=== PATIENT | male | born 1985 | race Caucasian/White ===

== ENCOUNTER 2017-09-26 14:23 | Outpatient (CLI) | payer OTHER ==
[2017-09-26 16:30] LABS: Anion Gap 9 mmol/L (10-20); BUN (Urea Nitrogen) 14 mg/dL (8.9-20.6); Calc. Creatinine Clearance 0 mL/min (70-130); Calcium 9.8 mg/dL (7.8-10.44); Carbon Dioxide 32 mmol/L (22-29); Chloride 102 mmol/L (98-107); Estimated GFR-MDRD 89; Glucose 133 mg/dL (70-105); Potassium 3.8 mmol/L (3.5-5.1); Sodium 139 mmol/L (136-145)
== END 2017-09-26 14:24 | disposition home or self-care (01) ==
LOC: LABBT 14:23
PROVIDERS: ATTEND Surgery
DX: Z01.812 Encounter for preprocedural laboratory examination (principal); K40.90 Unilateral inguinal hernia, without obstruction or gangrene, not specified as recurrent
CPT/HCPCS: 80048

== ENCOUNTER 2017-09-28 12:06 | Day surgery (SDC) | payer OTHER ==
[2017-09-26 15:01] VITALS: BMI 23.4
[2017-09-28] MEDS ORDERED: CEFAZOLIN/Water 2 GM/20 ML SYRINGE ONE (13:12)
[2017-09-28] MEDS ORDERED: Bupivacaine/Epinephrine 0.25% 30 ML VIAL ONE (13:33)
[2017-09-28] MEDS ORDERED: Midazolam HCl 2 mg/2 ml Vial ONE (13:53)
[2017-09-28] MEDS ORDERED: Fentanyl 250 MCG/5 ML VIAL ONE (13:53)
[2017-09-28] MEDS ORDERED: Fentanyl 100 MCG/2 ML VIAL ONE ×3 (13:53→16:06)
[2017-09-28] MEDS ORDERED: PROPOFOL 200 MG/20 ML VIAL ONE (15:32)
[2017-09-28] MEDS ORDERED: Glycopyrrolate 0.2 MG/ML 5 ML SYRINGE ONE (15:32)
[2017-09-28] MEDS ORDERED: Dexamethasone 20 MG/5 ML VIAL ONE (15:32)
[2017-09-28] MEDS ORDERED: Lidocaine 1% PF 5 ML VIAL ONE (15:32)
[2017-09-28] MEDS ORDERED: HYDROcodone/Acetaminophen 5/325 mg Tablet ONE (17:08)
--- NOTE | 2017-09-28 20:22 | OP ---
PREOPERATIVE DIAGNOSIS: Right inguinal hernia. POSTOPERATIVE DIAGNOSIS: Right inguinal hernia. PROCEDURE PERFORMED: Da Sid laparoscopic right inguinal hernia repair with mesh, Bard 3DMax large. SURGEON: Luis Duffy MD ANESTHESIA: General. ESTIMATED BLOOD LOSS: Minimal. COMPLICATIONS: None. SPECIMEN: None. FINDINGS: Right inguinal hernia. TECHNIQUE: The patient was taken to the operating room and placed supine on the table. After genera l anesthetic was obtained, Adame was placed. The abdomen was shaved, prepped, and draped in a steril e fashion. Curved incision was made above the umbilicus. Cautery used to dissect down to and score the fascia. Abdominal cavity was entered bluntly using a Nany clamp, followed by a 12-mm balloon ap plied medical trocar. The balloon was inflated and pulled up. High-flow pneumoperitoneum was obtain ed. Left and right abdominal 8-mm robot trocars were placed under direct visualization. The patient was placed in Trendelenburg position. All ports were docked to the robot. Surgeon goes to the cons ole. The peritoneum was taken down in the right groin and the preperitoneal space was fully dissecte d. The direct defect was dissected back out of the defect. A small indirect hernia sac was dissecte d high up onto the peritoneum. 3DMax large mesh had been brought into and placed into the abdominal cavity. The end-labeled medial aspect was placed over the pubic tubercle. The mesh was laid out la terally to cover the femoral, indirect and direct areas. 2-0 Vicryl was used to affix the mesh to pu bic tubercle medially and to the posterior fascia laterally. The peritoneum was approximated using 3 -0 Stratafix. All needles were removed from the abdomen and accounted for. All port sites were infi ltrated using local anesthetic. All ports were removed under camera visualization. Pneumoperitoneum was let down. PDS was used to close the fascial defect below the umbilicus. All incisions were irr igated and closed using 4-0 Monocryl and Dermabond. The patient went to recovery in stable condition . All sponge counts, needle counts, and lap counts were correct.
== END 2017-09-28 17:39 | disposition home or self-care (01) ==
LOC: SDC 12:06
PROVIDERS: ATTEND Surgery
PROC: 8E0W4CZ Robotic Assisted Procedure of Trunk Region, Percutaneous Endoscopic Approach (ICD-10-PCS; principal; 2017-09-28)
PROC: 0YU54JZ Supplement Right Inguinal Region with Synthetic Substitute, Percutaneous Endoscopic Approach (ICD-10-PCS; principal; 2017-09-28)
DX: K40.90 Unilateral inguinal hernia, without obstruction or gangrene, not specified as recurrent (principal); E10.9 Type 1 diabetes mellitus without complications; F32.9 Major depressive disorder, single episode, unspecified; F90.0 Attention-deficit hyperactivity disorder, predominantly inattentive type; Z79.899 Other long term (current) drug therapy
CPT/HCPCS: 96374; C1781; J0131; J1100; J2001; J2250; J2704; J3010